=== PATIENT | female | born 1975 | race Caucasian/White ===

== ENCOUNTER 2021-11-21 11:20 | Observation (INO) | payer BC, SELFPAY ==
[2021-11-21] VITALS (39 sets, daily range): BP systolic 111–164; BP diastolic 66–111; PULSE 73–104; RESP 12–26; TEMP 36.7–36.9; O2SAT 96–100; BMI 38.9
--- NOTE | 2021-11-21 11:40 | ECG_ITS ---
Measurements Intervals Barry Rate: 79 P: 8 OH: 153 QRS: -12 QRSD: 80 T: 17 QT: 329 QTc: 379 Interpretive Statements SINUS RHYTHM MINIMAL VOLTAGE CRITERIA FOR LVH, CONSIDER NORMAL VARIANT [MEETS CRITERIA IN ONE OF: R(aVL), S(V1), R(V5), R(V5/V6)+S(V1)] BORDERLINE ECG NO PREVIOUS ECG AVAILABLE FOR COMPARISON Electronically Signed On 11-21-2021 12:31:41 CDT by Sukhdev Hendrix M.D.
[2021-11-21 11:59] LABS: Basophils Percent Auto 0.2 % (0.2-1.2); Eosinophils Absolute Auto 0.1 K/mm3 (0-0.3); Eosinophils Percent Auto 0.6 % (0-4.4); Hematocrit 25.6 % (37.0-47.0); Immature Granulocyte Absolute 0.06 K/mm3 (0.00-0.031); Immature Granulocyte Percent A 0.6 % (0-0.5); Lymphocytes Absolute Auto 2.09 K/mm3 (0.9-3.2); Lymphocytes Percent Auto 22.1 % (18.3-44.2); Mean Corpuscular Hemoglobin 17.6 pg (26-34); Mean Corpuscular Volume 65.3 fl (80-100); Mean Platelet Volume 10.3 fl (7.4-10.4); Monocytes Absolute Auto 0.5 K/mm3 (0.1-0.6); Monocytes Percent Auto 5.3 % (2.6-8.5); Neutrophils Absolute Auto 6.7 K/mm3 (1.3-6.7); Neutrophils Percent Auto 71.2 % (45.5-73.1); Platelet Count Result 479 k/mm3 (150-375); Red Blood Count 3.92 M/mm3 (4.2-5.4); Red Cell Distribution Width 16.8 % (11.5-14.5); White Blood Count 9.5 K/mm3 (4.5-10.0)
[2021-11-21 12:02] LABS: Hemoglobin 6.9 g/dL (12.0-15.0)
[2021-11-21 12:08] LABS: Alanine Aminotransferase 15 U/L (4-35); Albumin Level 4.7 g/dL (3.5-5.1); Alkaline Phosphatase 120 U/L (38-126); Anion Gap 9 mmol/L (8-16); Aspartate Amino Transferase 23 U/L (14-36); Bilirubin,Total 0.4 mg/dL (0.2-1.3); Blood Urea Nitrogen 14 mg/dL (7-17); Carbon Dioxide 22 mmol/L (22-30); Chloride 104 mmol/L (98-107); Estimated CRCL calculation 114 ml/min; Estimated Glomerular Filt Rate > 60; Glucose 105 mg/dL (65-110); Potassium 3.7 mmol/L (3.4-5.0); Sodium 135 mmol/L (137-145)
[2021-11-21 12:17] LABS: Anisocytosis 2+ (NORMAL); Hypochromasia 2+ (NORMAL); Platelet Estimate Adequate (Adequate)
[2021-11-21 12:19] LABS: Ovalocytes 1+ (NORMAL)
--- NOTE | 2021-11-21 12:53 | ED.GENADULT ---
HPI - General Adult General Chief complaint: Dizziness Stated complaint: I need a blood transfusion Time Seen by Provider: 11/21/21 12:06 Source: patient Mode of arrival: ambulatory Limitations: no limitations History of Present Illness HPI narrative: Patient is a 46-year-old female sent here by her PATTERNATOR due to low hemoglobin of 6.5 . Patient states that she has been having on and off vaginal bleeding for the past month, was placed on progesterone 1 week ago which eventually resolved her bleeding, had lab work done by her PATTERNATOR and found her hemoglobin to be low and that is why she is here. Patient also noticed that she is more short of breath when she exerts herself and having generalized weakness for the past few days. Patient denies any GI bleeding. Patient denies being on any oral anticoagulants or antiplatelet medications. Related Data Allergies Allergy/AdvReac Type Severity Reaction Status Date / Time No Known Allergies Allergy Verified 11/21/21 11:55 Review of Systems Review of Systems: All systems reviewed & are unremarkable except as noted in HPI and below Constitutional: Constitutional: Denies body ache(s), Denies chills, Denies excessive sweating, Denies fatigue, Denies fever(s), Denies headache(s), Denies lethargy, Denies malaise and Denies weight loss Eyes: Eyes: Denies blurry vision, Denies change in vision and Denies loss of vision ENT: Denies dizziness, Denies ear discharge, Denies headache(s), Denies lip swelling, Denies epistaxis, Denies nasal congestion, Denies neck pain, Denies throat swelling and Denies tongue swelling Cardiovascular: Cardiovascular: Denies chest pain, Denies chest pain at rest, Denies chest pain with activity, Denies diaphoresis, Denies rapid heart rate, Denies edema, Denies irregular heart rhythm, Denies lightheadedness, Denies palpitations, Denies dyspnea and Denies dyspnea on exertion Respiratory: Respiratory: Denies chest congestion, Denies cough, Denies hemoptysis, Denies dyspnea and Denies dyspnea on exertion Gastrointestinal: Gastrointestinal: Denies abdominal pain, Denies melena, Denies hematochezia, Denies diarrhea, Denies nausea, Denies vomiting and Denies hematemesis Musculoskeletal: Musculoskeletal: Denies abnormal gait, Denies deformity, Denies joint swelling, Denies limited range of motion, Denies neck pain and Denies numbness Neurologic: Denies Abnormal speech present, Denies abnormal gait, Denies confusion, Denies dizziness, Denies headache(s), Denies focal weakness, Denies loss of vision, Denies numbness, Denies Other visual disturbances and Denies Sensory deficit (Neuro) Psychiatric: Psychiatric: Denies confusion, Denies depression, Denies auditory hallucinations, Denies homicidal ideation and Denies suicidal ideation Endocrine: Endocrine: Denies cold intolerance, Denies excessive sweating, Denies fatigue, Denies heat intolerance and Denies palpitations Hematologic/Lymphatic: Hematologic/Lymphatic: Denies easy bleeding and Denies easy bruising Allergic/Immunologic: Allergic/Immunologic: Denies lip swelling, Denies throat swelling and Denies tongue swelling PMFSH Past Medical History Medical History Irritable bowel syndrome with diarrhea Family History Family History Other Diabetes mellitus Hypertension Social History Social History Smoking status: Never smoker Second hand tobacco smoke exposure: No Alcohol intake: never Substance use: never Substance use type: does not use Additional living arrangements comments: and Daughter Gender identity (if verbalized by the patient): Female Sexual Orientation (if Verbalized by the Patient): Straight or Heterosexual Exam Const: General: cooperative, healthy appearing, comfortable, no acute distress, well developed, alert and awake;
[2021-11-21 12:58] LABS: INR 1.1; Partial Thromboplastin Time 23.6 SECONDS (22.3-36.8); Prothrombin Time 13.3 Seconds (11.1-14.7)
[2021-11-21] MEDS: ACETAMINOPHEN 325 MG TABLET 650 MG PO (14:43)
[2021-11-21] MEDS: diphenhydrAMINE HCl INJ 50 MG/ML VIAL 25 MG IV PUSH (14:43)
[2021-11-21] MEDS: TUBING, BLOOD PLUM PUMP TUBING 1 EACH XX (16:24)
[2021-11-21] MEDS: SODIUM CHLORIDE 0.9% IV 250 ML 30 ML IV CONT (16:24)
--- NOTE | 2021-11-21 18:02 | OBADM ---
This patient, Nicolás Saldana, admitted to the OB room OB Post 112 for observation. Patient/family oriented to hospital policies and general routines including ID bracelet, bed and alarms, visiting hours, pain management, procedures, bathroom and other care routines, personal items, smoking policy, room service/diet, and visiting hours. Patient/Family are encouraged to report perceived risks to care and to ask questions if they do not understand what they are told or what they should do.
[2021-11-22 04:13] VITALS: BP 131/71; PULSE 76
[2021-11-22 04:20] VITALS: TEMP 36.8
[2021-11-22 04:28] LABS: Hematocrit 27.7 % (37.0-47.0); Hemoglobin 7.9 g/dL (12.0-15.0); Mean Corpuscular HGB Conc 28.5 g/dl (32-36); Mean Corpuscular Hemoglobin 19.5 pg (26-34); Mean Corpuscular Volume 68.2 fl (80-100); Mean Platelet Volume 9.9 fl (7.4-10.4); Platelet Count Result 368 k/mm3 (150-375); Red Blood Count 4.06 M/mm3 (4.2-5.4); Red Cell Distribution Width 18.9 % (11.5-14.5); White Blood Count 10.6 K/mm3 (4.5-10.0)
--- NOTE | 2021-11-22 06:00 | PC.NURSE ---
Dr. Blanton called with CBC results. Pt feels better. May D/C home.
--- NOTE | 2021-12-13 10:15 | PM.OBTRLD ---
OB - Triage/Final Diagnosis Visit Information Comments/Additional reasons for admission: I have assessed the risk for this patient, Nicolás Saldana, and determined that she would benefit from observation care. Evaluation Laboratory results: Laboratory Tests 11/21/21 11/21/21 11/21/21 11:45 11:45 12:34 WBC 9.5 RBC 3.92 L Hgb 6.9 L* Hct 25.6 L MCV 65.3 L MCH 17.6 L MCHC 27.0 L RDW 16.8 H Plt Count 479 H MPV 10.3 Immature Gran % (Auto) 0.6 H Neut % (Auto) 71.2 Lymph % (Auto) 22.1 Saunders % (Auto) 5.3 Eos % (Auto) 0.6 Baso % (Auto) 0.2 Lymph # (Auto) 2.09 Saunders # (Auto) 0.5 Eos # (Auto) 0.1 Baso # (Auto) 0.0 Abs Immat Gran (auto) 0.06 H Absolute Neuts (auto) 6.7 Absolute Nucleated RBC 0.0 Nucleated RBC % 0.0 Platelet Estimate Adequate Hypochromasia 2+ Anisocytosis 2+ Ovalocytes 1+ PT INR APTT Sodium 135 L Potassium 3.7 Chloride 104 Carbon Dioxide 22 Anion Gap 9 BUN 14 Creatinine 0.70 Estim Creat Clear Calc 114 Estimated GFR > 60 Glucose 105 Calcium 9.0 Total Bilirubin 0.4 AST 23 ALT 15 Alkaline Phosphatase 120 Total Protein 9.0 H Albumin 4.7 Blood Type O Positive Antibody Screen Negative Crossmatch See Detail 11/21/21 11/22/21 12:34 04:13 WBC 10.6 H RBC 4.06 L Hgb 7.9 L Hct 27.7 L MCV 68.2 L MCH 19.5 L D MCHC 28.5 L RDW 18.9 H Plt Count 368 MPV 9.9 Immature Gran % (Auto) Neut % (Auto) Lymph % (Auto) Saunders % (Auto) Eos % (Auto) Baso % (Auto) Lymph # (Auto) Saunders # (Auto) Eos # (Auto) Baso # (Auto) Abs Immat Gran (auto) Absolute Neuts (auto) Absolute Nucleated RBC Nucleated RBC % Platelet Estimate Hypochromasia Anisocytosis Ovalocytes PT 13.3 INR 1.1 APTT 23.6 Sodium Potassium Chloride Carbon Dioxide Anion Gap BUN Creatinine Estim Creat Clear Calc Estimated GFR Glucose Calcium Total Bilirubin AST ALT Alkaline Phosphatase Total Protein Albumin Blood Type Antibody Screen Crossmatch Final Diagnosis (1) Symptomatic anemia: Code(s): D64.9 - Anemia, unspecified Status: Acute
== END 2021-11-22 06:40 | disposition home or self-care (01) ==
LOC: ANHED 16:15 → ANHOBPP 17:02
PROVIDERS: Emergency Medicine; Admitting Provider Obstetrics & Gynecology; Emergency Provider Emergency Medicine; PCP Family Medicine; Visit Provider Obstetrics & Gynecology
DX: D64.9 Anemia, unspecified (principal); N93.9 Abnormal uterine and vaginal bleeding, unspecified
CPT/HCPCS: 36415; 36430; 80053; 85025; 85027; 85610; 85730; 86850; 86900; 86901; 86920; 93005; 96374; 99285; A9270; G0378; G0379; J1200; J7050; P9016

== ENCOUNTER 2021-12-09 08:16 | Outpatient (CLI) | payer BC, SELFPAY ==
[2021-12-09 08:50] LABS: Hematocrit 33.8 % (37.0-47.0); Hemoglobin 9.5 g/dL (12.0-15.0)
== END 2021-12-09 08:17 | disposition home or self-care (01) ==
LOC: ANHSURGERY 08:20
PROVIDERS: Anesthesiology; PCP Family Medicine; Visit Provider Obstetrics & Gynecology
DX: D64.9 Anemia, unspecified (principal); Z01.818 Encounter for other preprocedural examination
CPT/HCPCS: 36415; 85014; 85018

== ENCOUNTER 2021-12-14 00:18 | Day surgery (SDC) | payer BC, SELFPAY ==
[2021-12-07 10:58] VITALS: BMI 36.8
--- NOTE | 2021-12-07 11:07 | PC.NURSE ---
Report to the Outpatient Waiting Room, entrance under the green pavilion located off [facility], at time _0600_ on date _12/14/21_. OR Time: _0730_. - You and your visitor will be asked a series of questions to screen for COVID 19 for your protection. - A mask is required within the hospital. One visitor will be allowed to accompany the patient into the hospital. Patients visitor will be instructed to remain with patient at all times or leave the building. We will allow the visitor to come back to the postoperative area when patient is ready. Preoperative COVID Testing Requirements: NONE Patients may have clear liquids (water, carbonated beverages, clear teas, apple juice) until 3 hours prior to surgery (0430 AM) with a maximum of 20 ounces. - No food from midnight until time of surgery Take the following medications with a SIP of water the morning of surgery: __NONE__ Medications to discontinue per physician __N/A____Date to take last dose Please no make-up, nail faroese, hairspray, perfume, deodorant, or body powder the day of surgery. No jewelry (including any body piercings) or valuables the day of surgery, leave them at home. Please take a shower or bath the night before, or the morning of, surgery with an antibacterial soap. Wear comfortable, loose fitting clothing. - Jewelry must be removed prior to entering the operating room. Rings and piercings that are not removed may be cut off. - The hospital will not accept responsibility for valuables. - Please leave all valuables, including medications, at home the day of surgery. If you are going home after surgery, a licensed flatbed driver must drive you home. - NO public transportation without another adult. - We recommend that an adult stay with you for 24 hours following discharge. - We also recommend that you do not drive, make important decision, drink alcoholic beverages, or take any drugs that were not prescribed by your health care provider for at least 24 hours after your discharge time. Follow any additional instructions given to you from your surgeon. Telephone instructions given to ____PT and asked if any additional questions and then verbalized understanding. Patient advised to call surgeon office or pre surgery nurse liaison [phone] if any additional questions.
--- NOTE | 2021-12-13 13:53 | P.PNAN_ITS ---
Anes - Initial Pre Proc Eval Procedure: Operation Date: 12/14/21 07:30 Proposed Procedures p Hysteroscopy, Dilation and Curettage - Ophelia Blanton MD Date/Time: 12/13/21 13:53 Surgeon: Ophelia Blanton MD Pre Op Diagnosis: abn uterine bleeding Patient Data Age: 46 Gender: F Height: 1.7 m Weight: 106.81 kg Allergies Allergy/AdvReac Type Severity Reaction Status Date / Time No Known Allergies Allergy Verified 12/14/21 06:15 Home Medications Medication Instructions Recorded Confirmed Type hyoscyamine sulfate 0.125 mg 0.125 mg SUBLINGUAL Q6-8H PRN #120 12/14/20 12/14/21 Rx sublingual tablet tablet progesterone micronized 200 mg DAILY 11/21/21 12/14/21 History ferrous sulfate 325 mg PO DAILY #30 tablet 11/22/21 12/14/21 Rx Patient hx anesthesia problems: none Family hx anesthesia problems: none Results Review: All pre-operative results and documents have been reviewed as part of the pre-operative evaluation. [facility] Past Medical History Medical History (Updated 12/13/21 @ 13:54 by Blue Davila MD) Abnormal uterine bleeding Irritable bowel syndrome with diarrhea Family History Family History Other Diabetes mellitus Hypertension Social History Social History Smoking status: Never smoker Second hand tobacco smoke exposure: No Alcohol intake: never Substance use: never Substance use type: does not use Living arrangements: with family Additional living arrangements comments: and Daughter Gender identity (if verbalized by the patient): Female Sexual Orientation (if Verbalized by the Patient): Straight or Heterosexual Spiritual care concerns: No Anes - Eval Final PreProcedure Day of Procedure 12/13/21 13:53 Patient weight: obese Heart: regular rate and rhythm Lungs: clear to auscultation and normal air movement Airway: Mallampati scale class II Neurological: alert and oriented Last oral intake: >/= 8 hours ASA classification: II Emergent: no Anesthetic plan: proceed Anesthesia type and monitoring: general GIVS and LMA Results Review: All pre-operative results and documents have been reviewed as part of the pre-operative evaluation. Informed Consent: The patient's anesthetic plan and its attendant risks and benefits were discussed with the patient/family/POA. Questions were solicited and answers provided to the satisfaction of the patient/family/POA.
[2021-12-14 06:09] VITALS: BP 138/83; PULSE 73; RESP 18; TEMP 36.5; O2SAT 100
[2021-12-14] MEDS: ACETAMINOPHEN 500 MG TABLET 1000 MG PO (06:32)
--- NOTE | 2021-12-14 07:12 | WPDHPUPDATE1 ---
History and Physical Update Update Date/Time: 12/14/21 07:12 History and Physical has been reviewed, including an updated exam of the patient. There are NO changes in the patient's condition. Risks, benefits, and alternatives have been discussed and questions answered. Patient agrees to proceed with procedure.
[2021-12-14] MEDS: KETOROLAC 30 MG/ML VIAL (*BKC) IV PUSH (07:51)
[2021-12-14 07:59] VITALS: BP 122/74; PULSE 65; RESP 16; O2SAT 98
[2021-12-14] MEDS: LACTATED RINGERS 1,000 ML 30 ML IV CONT (07:59)
--- NOTE | 2021-12-14 08:14 | P.OP_ITS ---
Procedure Note - Detailed Date of Procedure 12/14/21 Pre-op Diagnosis abn uterine bleeding Post-op Diagnosis Same Procedure Performed Hysteroscopy D&C Surgeon Ophelia Blanton MD Anesthesia MAC Indications abnormal uterine bleeding Findings Non uniform growth of the endometrium, nodular, slightly bizarre, appears invasive, deeper areas were refractory to curettage. Normal vulva, vagina, cervix. Description of Procedure the patient was taken the operating room. She was prepped and draped in the dorsal lithotomy position after induction of mac anesthesia. A speculum was placed in the vagina. The cervix was grasped with a tenaculum. The cervix was dilated about 1 cm. The hysteroscope was inserted. The intrauterine cavity and endocervix were evaluated. Hysteroscope was withdrawn. A medium-size cur ette was used to curettage all the surfaces were within the endometrial cavity. the sample was collected on Telfa and sent to pathology. The hysteroscope was reinserted and the above findings were noted. Patient tolerated the procedure well. The speculum and tenaculum were removed. She was taken recovery room in stable condition. Sponge lap and needle counts were correct x2. Estimated Blood Loss 10 Drains No Packing No Pathology Yes Complications No immediate complications Condition Stable Disposition PACU
[2021-12-14 08:30] VITALS: BP 122/53; PULSE 75; RESP 20; O2SAT 98
[2021-12-14 08:50] VITALS: BP 122/53; PULSE 60; RESP 20
--- NOTE | 2021-12-14 08:56 | SUR.PHASEII ---
dr. sawyer in room talking with patient.
== END 2021-12-14 09:08 | disposition home or self-care (01) ==
PROVIDERS: PCP Family Medicine; Visit Provider Obstetrics & Gynecology
PROC: 0U5B8ZZ Destruction of Endometrium, Via Natural or Artificial Opening Endoscopic (ICD-10-PCS; CPT 58563; principal; 2021-12-14 07:30)
DX: D64.9 Anemia, unspecified (principal); N93.9 Abnormal uterine and vaginal bleeding, unspecified; K58.0 Irritable bowel syndrome with diarrhea; E66.9 Obesity, unspecified; Z68.38 Body mass index [BMI] 38.0-38.9, adult
CPT/HCPCS: 58558; 88305; A9270; J1100; J1885; J2250; J2405; J2704; J3010; J7030; J7120

== ENCOUNTER 2023-07-06 08:30 | Outpatient (CLI) | payer BC, SELFPAY ==
[2023-07-06 13:54] LABS: Basophils Percent Auto 0.4 % (0.2-1.2); Eosinophils Absolute Auto 0.1 K/mm3 (0-0.3); Eosinophils Percent Auto 1.3 % (0-4.4); Hemoglobin 13.1 g/dL (12.0-15.0); Immature Granulocyte Absolute 0.01 K/mm3 (0.00-0.031); Immature Granulocyte Percent A 0.1 % (0-0.5); Lymphocytes Percent Auto 23.7 % (18.3-44.2); Mean Corpuscular HGB Conc 31.2 g/dl (32-36); Mean Corpuscular Hemoglobin 27.2 pg (26-34); Mean Corpuscular Volume 87.1 fl (80-100); Mean Platelet Volume 11.2 fl (7.4-10.4); Monocytes Absolute Auto 0.4 K/mm3 (0.1-0.6); Monocytes Percent Auto 5.8 % (2.6-8.5); Neutrophils Absolute Auto 4.6 K/mm3 (1.3-6.7); Neutrophils Percent Auto 68.7 % (45.5-73.1); Platelet Count Result 189 k/mm3 (150-375); Red Blood Count 4.82 M/mm3 (4.2-5.4); Red Cell Distribution Width 13.3 % (11.5-14.5); White Blood Count 6.8 K/mm3 (4.5-10.0)
[2023-07-06 14:09] LABS: Alanine Aminotransferase 16 U/L (6-35); Albumin Level 4.4 g/dL (3.5-5.1); Alkaline Phosphatase 75 U/L (38-126); Anion Gap 9 mmol/L (8-16); Aspartate Amino Transferase 25 U/L (14-36); Bilirubin,Total 0.7 mg/dL (0.2-1.3); Blood Urea Nitrogen 15 mg/dL (7-17); Calcium 9.4 mg/dL (8.4-10.2); Carbon Dioxide 27 mmol/L (22-30); Chloride 104 mmol/L (98-107); Cholesterol 118 mg/dL (0-200); Estimated Glomerular Filt Rate > 60; Glucose 86 mg/dL (65-110); HDL Direct 35 mg/dL; Potassium 4.3 mmol/L (3.4-5.0); Sodium 140 mmol/L (137-145); Triglycerides 68 mg/dL (<150)
[2023-07-06 14:20] LABS: LDL Cholesterol Direct 63 mg/dL
[2023-07-06 14:35] LABS: Thyroid Stimulating Hormone 0.923 uIU/mL (0.465-4.680)
[2023-07-06 15:15] LABS: Hemoglobin A1C 5.3 % (<5.7)
[2023-07-10 09:58] LABS: Vitamin D 1,25 (OH)2 Total 37 pg/mL (18-72); Vitamin D2 1,25 (OH)2 <8 pg/mL; Vitamin D3 1,25 (OH)2 37 pg/mL
== END 2023-07-06 08:31 | disposition home or self-care (01) ==
LOC: ANHGOSHLAB 08:31
PROVIDERS: PCP Family Medicine; Visit Provider Nurse Practitioner Family
DX: E55.9 Vitamin D deficiency, unspecified (principal); D64.9 Anemia, unspecified; Z00.00 Encounter for general adult medical examination without abnormal findings
CPT/HCPCS: 36415; 80053; 80061; 82607; 82652; 83036; 84443; 85025

== ENCOUNTER 2025-04-03 08:23 | Emergency (ER) | payer BC, SELFPAY ==
--- NOTE | 2025-04-03 08:25 | ED.URI ---
HPI - URI/Sore Throat General Chief Complaint: Upper Respiratory Infection Stated Complaint: Sore Throat Time Seen by Provider: 04/03/25 08:24 Source: patient Mode of arrival: ambulatory Limitations: no limitations History of Present Illness HPI Narrative: Jose Angel is a 49-year-old female patient presenting to the clinic today with complaints of dental pain and feels as though her throat is getting sore. She contacted her dentist last week in regards to a broken tooth and they told her if she developed any pain in her throat or tooth she should come in and be evaluated for an infection. Denies any fevers, chills, body aches. Denies any nasal congestion or postnasal drip symptoms. Does have some dental pain to the right lower number 30 tooth. Has taken Motrin for pain. Rates pain 5 at 10 currently. Related Data Home Medications ?Medication ?Instructions ?Recorded ?Confirmed ?Last Taken ?Type etonogestrel 68 mg subdermal 1 implant subdermal ONCE 02/08/22 07/06/23 Unknown History implant (Nexplanon) Allergies Allergy/AdvReac Type Severity Reaction Status Date / Time No Known Allergies Allergy Verified 04/03/25 08:47 Review of Systems Review of Systems: Pertinent positives per HPI. Patient denies any fever, chills, rash, headache, visual changes, dizziness, cough, shortness of breath, chest pain, palpitations, nausea, vomiting, diarrhea, constipation, abdominal pain, or any urinary issues. ON LICENSE OF [facility] Past Medical History Medical History Abnormal uterine bleeding Irritable bowel syndrome with diarrhea Surgical History Surgical History H/O dilation and curettage (~12/14/21) Family History Family History Other Diabetes mellitus Hypertension Social History Social History Smoking status: Never smoker Second hand tobacco smoke exposure: No Alcohol intake: never Substance use: never Substance use type: does not use Living arrangements: with family Additional living arrangements comments: and Daughter Occupation/Education: unemployed Gender identity (if verbalized by the patient): Female Sexual Orientation (if Verbalized by the Patient): Straight or Heterosexual Spiritual care concerns: No Comments At the time of my signature, I reviewed and agree with the nursing past medical, surgical, social, and family history. There is no relevant family history pertinent to the patient complaint. Exam Narrative: General: Well-developed, obese, in no apparent distress Head: Normocephalic, atraumatic Eyes: Pupils equally round and reactive to light bilaterally, EOM intact, sclera and conjunctive clear, no discharge, lids normal Ears: TMs intact and clear, ear canals clear, no drainage, grossly hearing normal. Nose: Nares patent, no discharge, no inflammation, no sinus tenderness. Mouth: Oral pharynx without lesions or masses, fair dentition, MMM. Fractured tooth/dental pain to the right lower number 30 tooth. Mild gingival swelling around tooth. Neck: Supple, trachea midline, no enlargement of anterior or posterior cervical nodes, no thyroid masses or goiter palpable. Cardio: Regular rate and rhythm, s1 and s2 normal, no murmur appreciated. Resp: Clear to auscultation bilaterally, no rhonchi, rales, wheezing or rubs Course Course Emergency Course: Portions of this record may have been created with voice recognition software. Level of Care: Express Care Visit Vital Signs Vital signs: Vital Signs Temperature 36.4 C 04/03/25 08:44 Pulse Rate 73 04/03/25 08:44 Respiratory Rate 16 04/03/25 08:44 Blood Pressure 159/88 H 04/03/25 08:44 Pulse Oximetry 100 04/03/25 08:44 Temperature 36.4 C 04/03/25 08:44 Pulse Rate 73 04/03/25 08:44 Respiratory Rate 16 04/03/25 08:44 Blood Pressure 159/88 H 04/03/25 08:44 Pulse Oximetry 100 04/03/25 08:44 Vital signs reviewed MDM - URI/Sore Throat MDM Narrative Medical decision making narrative: At the time of visit patient is resting comfortably on the exam table. Patient appears to be nontoxic. Complaints of dental pain and feels as though her throat is getting sore. She contacted her dentist last week in regards to a broken tooth and they told her if she developed any pain in her throat or tooth so she should come in and be evaluated for an infection. Denies any fevers, chills, body aches. Denies any nasal congestion or postnasal drip symptoms. Does have some dental pain to the right lower number 30 tooth. Mild gingival swelling around tooth. Has taken Motrin for pain. Rates pain currently a 5/10. Plan: I suspect patient has a dental pain/fracture to the with gingival swelling. Prescription for amoxicillin was sent to the pharmacy. Supportive measures were discussed with the patient and they voiced understanding discharge instructions and agrees to treatment plan. Return precautions reviewed Differential Diagnosis Differential diagnosis: Likely upper respiratory infection, otitis media, sinusitis, viral infection, bronchitis, influenza, pharyngitis and other (COVID) Discharge Plan Discharge Clinical Impression: Toothache Patient Disposition: Home Condition: Stable Instructions: Antibiotic Form, Toothache (ED) Additional Instructions: Take medications as prescribed-amoxicillin Increase fluids and stay well hydrated May take Tylenol/Motrin per bottle instructions as needed for pain or fever May apply Orajel to the affected area to help alleviate pain May apply warm or cool compress to the affected area to help alleviate pain Follow-up with your dentist as soon as possible Patient Language: Malawian Prescriptions: New amoxicillin 875 mg tablet 875 mg PO Q12H 10 Days Qty: 20 0RF No Action Nexplanon 68 mg implant 1 implant subdermal ONCE Rx Instructions: as a single dose hyoscyamine sulfate 0.125 mg tablet, sublingual 0.125 mg sublingual Q6-8H PRN (Reason: abdominal discomfort) Qty: 180 0RF Follow-up/Referrals: Daniel Baldwin MD [Primary Care Provider] - Time of Disposition: 08:52 Quality NIHSS Nursing Documentation ED NIHSS nursing documentation: reviewed/agree
[2025-04-03 08:44] VITALS: BP 159/88; PULSE 73; RESP 16; TEMP 36.4; O2SAT 100
== END 2025-04-03 08:54 | disposition home or self-care (01) ==
PROVIDERS: Emergency Provider Nurse Practitioner Family; PCP Family Medicine
DX: K08.89 Other specified disorders of teeth and supporting structures (principal)
CPT/HCPCS: 99213; G0463

== ENCOUNTER 2025-04-25 08:14 | Emergency (ER) | payer BC, SELFPAY ==
[2025-04-25 08:27] VITALS: BP 136/90; PULSE 71; RESP 16; TEMP 36.7; O2SAT 100
--- NOTE | 2025-04-25 08:37 | ED.DENTAL ---
HPI - Dental/Oral General Chief complaint: Dental/Oral Stated complaint: Tooth Pain Time Seen by Provider: 04/25/25 08:37 Source: patient, RN notes reviewed and old records reviewed Mode of arrival: ambulatory Limitations: no limitations History of Present Illness HPI Narrative: 49-year-old female who presents to [facility] with complaints dental pain to number 30 tooth on right lower bottom. Patient was seen on the with similar symptoms and received an antibiotic which did resolve her pain but now has swelling and redness to the side of the gum next to #30 tooth with white pustule noted. Patient has been taking Ibuprofen and Tylenol for her discomfort and has been using ice pack to the right side of her face. Patient does have dental appointment on Sunday. Complaint: tooth pain Location: Tooth # (30) Onset (ago): day(s) (1) Duration: constant Severity: moderate Severity scale (1-10): 6 Treatment prior to arrival: oral analgesic (Tylenol and Ibuprofen) Related Data Home Medications ?Medication ?Instructions ?Recorded ?Confirmed ?Last Taken ?Type etonogestrel 68 mg subdermal 1 implant subdermal ONCE 02/08/22 07/06/23 Unknown History implant (Nexplanon) Allergies Allergy/AdvReac Type Severity Reaction Status Date / Time No Known Allergies Allergy Verified 04/25/25 08:23 Review of Systems Review of Systems: CONSTITUTIONAL: Denies fever, chills, or sweats. ENT: Denies rhinorrhea, congestion, sore throat, or otalgia. Reports dental pain to #30 tooth with noted caries with redness swelling and pus pocket to outer gum next to tooth CARDIOVASCULAR: Denies chest pain, palpitations, or edema. RESPIRATORY: Denies cough or dyspnea. SKIN: Denies rash or itching. MUSCULOSKELETAL: Denies myalgia. NEUROLOGIC: Denies headache All systems reviewed & are unremarkable except as noted in HPI and below PMFSH Past Medical History Medical History Abnormal uterine bleeding Irritable bowel syndrome with diarrhea Surgical History Surgical History H/O dilation and curettage (~12/14/21) Family History Family History Other Diabetes mellitus Hypertension Social History Social History Smoking status: Never smoker Second hand tobacco smoke exposure: No Alcohol intake: never Substance use: never Substance use type: does not use Living arrangements: with family Additional living arrangements comments: and Daughter Occupation/Education: unemployed Gender identity (if verbalized by the patient): Female Sexual Orientation (if Verbalized by the Patient): Straight or Heterosexual Spiritual care concerns: No Comments At time of signature, agree with nursing past medical, surgical, social and family history. There is no relevant family history pertinent to the presenting complaint Exam Narrative: GENERAL: Well-appearing, well-nourished, and in no acute distress. HEAD: Normocephalic, atraumatic. EYES: PERRLA and EOMI. ENT: Nares clear, no rhinorrhea or epistaxis. Mucous membranes moist. Caries noted to middle of #30 tooth with swelling and redness to surrounding gum with white pustule to lateral area, no trismus or Pelon angina NECK: Supple. no lymphadenopathy CHEST: Clear to auscultation. No respiratory distress.SAO2 100% on room air HEART: Regular rate and rhythm. No murmur heard. Normal peripheral pulses. SKIN: Warm, dry, no rash. NEURO: No focal deficits. Alert and oriented x3. Course Course Emergency Course: Patient is aware of diagnosis, understands and agrees to treatment plan. Anticipatory guidance given. Patient agrees to follow-up as directed and is aware of reasons to seek care at the emergency department. Portions of this record may have been created with voice recognition software Level of Care: Express Care Visit Vital Signs Vital signs: Vital Signs Temperature 36.7 C 04/25/25 08:27 Pulse Rate 71 04/25/25 08:27 Respiratory Rate 16 04/25/25 08:27 Blood Pressure 136/90 04/25/25 08:27 Pulse Oximetry 100 04/25/25 08:27 Oxygen Delivery Room Air 04/25/25 08:27 Temperature 36.7 C 04/25/25 08:27 Pulse Rate 71 04/25/25 08:27 Respiratory Rate 16 04/25/25 08:27 Blood Pressure 136/90 04/25/25 08:27 Pulse Oximetry 100 04/25/25 08:27 Oxygen Delivery Room Air 04/25/25 08:27 Reviewed MDM - Dental/Oral MDM Narrative Medical decision making narrative: Patients pain and complaint coupled with physical findings are consistent with dentalgia. There are no focal signs of space occupying lesions that are compromising to the airway; no dysphagia, odynophagia, dysphonia, or dyspnea. No uvular deviation or soft palate edema. Patient is non-toxic appearing. The floor of the mouth is soft with no signs of Pelon's Angina; no induration below mandible, no neck pain.? Patient is without trismus or drooling and able to swallow secretions.? Patient is felt appropriate for discharge home with dental follow up. Differential Diagnosis Differential diagnosis: Likely dental caries, dental abscess and other (dental pain) Medical Records Attestation: I reviewed the patient's medical records. Critical Care Time Critical Care Time Critical Care Time: No Discharge Plan Discharge Clinical Impression: Dental abscess, Dentalgia Patient Disposition: Home Condition: Stable Instructions: Antibiotic Form, Dental Abscess (ED) Additional Instructions: Avoid temperature extremes May apply heat or ice to the face Gentle brushing and flossing Antibiotic as directed Tylenol for lesser pain Use ibuprofen regularly Follow-up with the dentist as soon as possible--see the list provided If your symptoms persist, change or worsen significantly before you can contact your personal physician then please, without delay, go to the emergency department for further evaluation. Follow-up with PCP in 7-10 days or sooner if needed Follow up with PCP soon in regards to your blood pressure which is elevated above threshold for referral. Blood pressure above 120/80 may indicate pre-hypertension. 136/90 Patient Language: Bengali Prescriptions: New amoxicillin-pot clavulanate 875-125 mg tablet 1 tablet PO Q12H Qty: 20 0RF Rx Instructions: take with food recommend either taking Probiotic or Activa yogurt while taking this medication. No Action Nexplanon 68 mg implant 1 implant subdermal ONCE Rx Instructions: as a single dose hyoscyamine sulfate 0.125 mg tablet, sublingual 0.125 mg sublingual Q6-8H PRN (Reason: abdominal discomfort) Qty: 180 0RF Follow-up/Referrals: Daniel Baldwin MD [Primary Care Provider, Family Practice] Stand Alone Forms: Work/School Release IP Time of Disposition: 08:53 Quality Lissette Coma Scale Eyes: Open Verbal: Oriented and Alert Motor: Follows Commands Lissette Coma Total Score: 15
== END 2025-04-25 08:56 | disposition home or self-care (01) ==
PROVIDERS: Emergency Provider Registered Nurse; PCP Family Medicine
DX: K04.7 Periapical abscess without sinus (principal)
CPT/HCPCS: 99213; G0463